=== PATIENT | male | born 1950 | race Caucasian/White ===

== ENCOUNTER → 2016-11-24 | Outpatient (CLI) | payer OTHER ==
[~2016-11-24] VITALS: Ht 177.8 cm; Wt 90.7 kg
[~2016-11-24] MED LIST: ALEVE220 MG PO; AMLODIPINE-BEN1 EAC5 PO; ASPIRIN325 PO; CENTRUM SILVER1 EAC2 PO; GLUCOSAMINE CH1 EA10 PO; IBUPROFEN200 M1 PO; INDAPAMIDE2.5 MG PO; LACTASE ENZ4500 UNIT PO; PROSCAR 5MG TABL5 MG PO
--- NOTE | ~2016-11-24 | S ---
[facility] [place] [address] [address] SURGICAL PATH RPT PROCEDURE Name: TODD LARSEN Room #: REG [facility].#: [id number] Admission: 11/24/16 Date of : 48 Discharge: Report #: [id number] Path Case #: [id number] PATHOLOGY REPORT COLLECTION DATE: 11/24/2016 RECEIVED DATE: 11/24/2016 SUBMITTING PHYS: Dr. Bobby Paula OTHER PHYS: SPECIMEN(S) RECEIVED: A.Ascending colon B.Transverse colon C.Descending colon D.Sigmoid E.Rectum * * * * * * * * * * * * FINAL DIAGNOSIS: A. Large intestine, ascending colon, endoscopic biopsy: - Mild chronic active colitis, history of ulcerative colitis. - Negative for dysplasia or malignancy. B. Large intestine, transverse colon, endoscopic biopsy: - Quiescent colitis, history of ulcerative colitis. - Negative for dysplasia or malignancy. C. Large intestine, descending colon, endoscopic biopsy: - Quiescent colitis, history of ulcerative colitis. - Negative for dysplasia or malignancy. D. Large intestine, sigmoid, endoscopic biopsy: - Moderate chronic active colitis, history of ulcerative colitis. - Negative for dysplasia or malignancy. E. Large intestine, rectum, endoscopic biopsy: - Moderate chronic active colitis, history of ulcerative colitis. - Negative for dysplasia or malignancy. COMMENT: Part D and E: Examination shows a markedly expanded lamina propria with basal plasmacytosis. The surface epithelium shows marked active inflammation. In addition there are crypt abscesses as well as areas of cryptitis present. There are no granulomata present. All of the fragments sampled in the "sigmoid colon" and "rectum" appear to show similar degree of involvement along with architectural abnormalities. Findings are consistent with the provided history of ulcerative colitis. There is no dysplasia or malignancy present. (IUV:csd; d/t: 11/25/2016) PATHOLOGIST: Marlene Prater M.D. REPORT ELECTRONICALLY SIGNED BY: Marlene Prater M.D. [address] [address] SURGICAL PATH RPT PROCEDURE Name: TODD LARSEN Room #: REG [facility]#: [id number] Admission: 11/24/16 Date of : 48 Discharge: Report #: [id number] Path Case #: [id number] DATE/TIME: 11/25/2016 16:15 * * * * * * * * * * * * GROSS PATHOLOGY: A. Received in formalin labeled "Todd Larsen, ascending colon," are 5 segments of loera soft tissue measuring 0.7 x 0.5 x 0.2 cm in aggregate dimensions and ranging from 0.2 to 0.5 cm in maximum dimension. The specimen is submitted entirely in cassette A1. B. Received in formalin labeled "Todd Larsen, transverse colon," are 4 segments of loera soft tissue measuring 0.5 x 0.5 x 0.3 cm in aggregate dimensions and ranging from 0.3 to 0.5 cm in maximum dimension. The specimen is submitted entirely in cassette B1. C. Received in formalin labeled "Todd Larsen, descending colon," are 4 segments of loera soft tissue measuring 0.7 x 0.5 x 0.2 cm in aggregate dimensions and ranging from 0.3 to 0.7 cm in maximum dimension. The specimen is submitted entirely in cassette C1. D. Received in formalin labeled "Todd Larsen sigmoid," are 3 segments of loera soft tissue measuring 0.6 x 0.5 x 0.2 cm in aggregate dimensions and ranging from 0.3 to 0.6 cm in maximum dimension. The specimen is submitted entirely in cassette D1. E. Received in formalin labeled "Todd Larsen, rectum," are 4 segments of loera soft tissue measuring 0.5 x 0.4 x 0.2 cm in aggregate dimensions and ranging from 0.2 to 0.4 cm in maximum dimension. The specimen is submitted entirely in cassette E1. (KAH; 11/24/2016) CLINICAL HISTORY: Pre-op diagnosis: History of ulcerative colitis Post-op diagnosis: Ulcerative colitis INITIAL CPT CODE(S): A; 38582 B; 41430 C; 21331 D; 99747 E; 01143 Professional services performed by [facility] at [address], [place] [address] Technical services performed by [facility] at [address] [place] [address], [address], [place] [address]. [facility] [address] [address] SURGICAL PATH RPT PROCEDURE Name: TODD LARSEN Room #: REG [facility].#: [id number] Admission: 11/24/16 Date of : 48 Discharge: Report #: [id number] Path Case #: [id number] [address] PHONE: [phone] DIRECTOR: Mike Brian M.D. * * * END OF REPORT * * *
--- NOTE | ~2016-11-24 | P ---
[facility] [place] [address] [place] [address] PROCEDURE REPORT Name: RIKA LARSEN Room #: REG [facility]#: [id number] Admission: 11/24/16 Attend Phys: Bobby Rivero Discharge: Date of : 48 Report #: [id number] THIS REPORT FOR: //name// CC: Bobby Ayon MD DATE OF SERVICE: 11/24/2016 PROCEDURE PERFORMED: Colonoscopy with biopsies. HISTORY OF PRESENT ILLNESS: The patient is a 66-year-old male with a history of ulcerative colitis who was recently evaluated in the office. The patient was diagnosed with ulcerative colitis years ago, was placed on mesalamine initially, apparently made his symptoms worse, there was a time when he was on Remicade, in which he was under better control. He also was on Imuran at one time, which was discontinued due to side effects. He has been having bloody diarrhea, abdominal pain. Plan is for colonoscopy. DESCRIPTION OF PROCEDURE: The risks and benefits of the procedure were explained to the patient, those risks including but not limited to bleeding, perforation and the risk of sedation. He understood these risks and gave informed consent. Sedation was given using propofol per anesthesia. Next, a digital rectal exam was initially performed, which was normal other than showing perianal skin excoriation. Next, using a standard Fujinon colonoscope, the scope was placed in the patient's anus and advanced under direct vision to the cecum. The overall prep was excellent. The cecum and ileocecal valve were normal in appearance. Terminal ileum was intubated and normal in appearance. The ascending colon was normal other than a few scattered diverticuli. No evidence of colitis. Because of his history of ulcerative colitis, I obtained random biopsies in the ascending, transverse, descending, sigmoid colon and rectum. The transverse colon and descending colon also were normal other than a few scattered diverticuli. In the sigmoid colon, multiple diverticuli were noted and a transition zone was noted at approximately 35 cm from the anus in which he became inflamed consistent with ulcerative colitis. As the scope was then slowly withdrawn, the inflammation became worse. The rectum showed moderate to severe ulcerative colitis with multiple ulcerations. Again biopsies were obtained in each of these areas. Close examination of the anal canal showed internal hemorrhoids, nonbleeding and then again perianal skin excoriation was noted. At this point, the scope was then withdrawn and the procedure terminated. The patient tolerated the procedure well. IMPRESSION: 1. Active colitis involving the sigmoid colon and rectum consistent with ulcerative colitis. 2. Pandiverticulosis. [address] [address] PROCEDURE REPORT Name: RIKA LARSEN Room #: REG [facility]#: [id number] Admission: 11/24/16 Attend Phys: Bobby Rivero Discharge: Date of : 48 Report #: [id number] 3. Internal hemorrhoids. 4. Perianal skin excoriation. RECOMMENDATIONS: 1. Await biopsy results. 2. We will discuss options with the patient including starting steroids, may consider enema versus a biologic such as Humira as the patient had previously already been on Imuran with side defects as well as Remicade in the past. Thank you for allowing me to participate in his care. <ELECTRONICALLY SIGNED> By: Bobby Paula MD 11/26/16 [id number] Bobby Paula MD /nt
== END ==
LOC: GI 06:56
DX: K51.90 Ulcerative colitis, unspecified, without complications (principal); K57.30 Diverticulosis of large intestine without perforation or abscess without bleeding; K64.8 Other hemorrhoids; F32.9 Major depressive disorder, single episode, unspecified; Z87.891 Personal history of nicotine dependence; I10 Essential (primary) hypertension; G47.33 Obstructive sleep apnea (adult) (pediatric)
CPT/HCPCS: 62110; 62900

== ENCOUNTER → 2018-02-03 | Outpatient (CLI) | payer OTHER ==
--- NOTE | ~2018-02-03 | EKG ---
[place] [address] [address] [facility] [place] [address] ELECTROCARDIOGRAM REPORT Name: RIKA LARSEN [facility] [id number] Admission: 02/03/18 Attend Phys: Wilian Crocker MD, F Discharge: Date of : 48 Report #: [id number] THIS REPORT FOR: //name// [facility] Test Date: 2018-02-03 Test Time: 09:02:58 Pat Name: RIKA LARSEN Department: Room: Gender: Food Analyst: : 1950 Requested By: Wilian Crocker Order Number: [id number] MD: Ronny Rico Measurements Intervals [place] Rate: 66 P: 57 CA: 183 QRS: 58 QRSD: 107 T: 57 QT: 428 QTc: 449 Interpretive Statements Sinus rhythm Borderline T abnormalities, anterior leads No previous ECG available for comparison Electronically Signed On 02-06-2018 9:06:16 CDT by Ronny Rico [email or web address] <ELECTRONICALLY SIGNED> By: Ronny Rico MD, [facility] 02/06/18 0906 09 0902 Ronny Rico MD, FAC /EPI
[2018-02-03 08:59] LABS: ABSOLUTE NEUTROPHILS 3.9 thou/uL (1.4-8.2); BASOPHILS 1.8 % (0.0-2.0); EOSINOPHILS 3.5 % (0.0-3.0); HEMATOCRIT 47.9 % (42.0-52.0); HEMOGLOBIN 17.1 gm/dL (14.0-18.0); LYMPHOCYTES 22.1 % (24.0-44.0); MCH 28.2 pg (26.0-34.0); MCHC 35.7 g/dL (28.0-37.0); MCV 78.9 fL (80.0-100.0); MONOCYTES 5.8 % (1.0-8.0); PLATELET COUNT 173 thou/uL (150-400); POLYS 66.8 % (36.0-66.0); RBC 6.07 mil/uL (4.50-6.00); RDW 13.7 % (10.5-14.5); WBC 5.8 thou/uL (4.0-11.0)
[2018-02-03 09:02] LABS: ALBUMIN 4.2 g/dL (3.4-5.0); CALCIUM 9.2 mg/dL (8.5-10.1); CREATININE 1.1 mg/dL (0.7-1.3); POTASSIUM 3.5 mmol/L (3.5-5.1); TOTAL BILIRUBIN 0.7 mg/dL (<0.1-1.0); TOTAL PROTEIN 7.6 g/dL (6.4-8.2)
[2018-02-03 11:28] LABS: ANISOCYTOSIS SLIGHT
== END ==
LOC: LABMALL 08:11
PROVIDERS: Surgery
DX: Z01.818 Encounter for other preprocedural examination (principal)

== ENCOUNTER 2018-02-15 05:24 | Day surgery (SDC) | payer OTHER ==
[~2018-02-15] VITALS: Ht 177.8 cm; Wt 91.6 kg
--- NOTE | ~2018-02-15 | O ---
[facility] [place] [address] [place] [address] OPERATIVE REPORT Name: RIKA LARSEN Room #: [facility]#: [id number] Admission: 02/15/18 Attend Phys: Wilian Crocker MD, F Discharge: 02/15/18 Date of : 48 Report #: [id number] THIS REPORT FOR: //name// CC: Musa Crocker DATE OF SERVICE: 02/15/2018 SURGEON: Wilian Crocker MD. SALES DEVELOPMENT EXECUTIVE: None. PREOPERATIVE DIAGNOSES: 1. Right inguinal hernia, possible recurrent left inguinal hernia. 2. History of inflammatory bowel disease/ulcerative colitis. 3. Hypertension. POSTOPERATIVE DIAGNOSES: 1. Right pantaloon inguinal hernia. 2. Right spigelian hernia. 3. Recurrent left pantaloon inguinal hernia. 4. Incarcerated incisional ventral hernia. 5. Incarcerated umbilical hernia. 6. History of inflammatory bowel disease. 7. Hypertension. PROCEDURES: 1. Laparoscopic totally extraperitoneal repair of right pantaloon inguinal and spigelian hernia with ProGrip mesh. 2. Laparoscopic total extraperitoneal repair of recurrent left pantaloon inguinal hernia with ProGrip mesh. 3. Laparoscopic primary repair of incarcerated incisional ventral hernia. 4. Open repair of incarcerated umbilical hernia. ANESTHESIA: General endotracheal anesthesia and local anesthetic. ESTIMATED BLOOD LOSS: 10 mL. SPECIMEN: None. COMPLICATIONS: None appreciated. INDICATION FOR PROCEDURE: This is a 67-year-old male patient of Dr. Musa Ayon and Dr. Gould who has had a right groin bulge over the past 5 years. More recently, the patient has developed pain with activity and abdominal straining. He denies a change in his bowel habits. The patient does have a history of an [facility] [address] [place] [address] OPERATIVE REPORT Name: RIKA LARSEN Room #: DEP [facility].#: [id number] Admission: 02/15/18 Attend Phys: Wilian Crocker MD, F Discharge: 02/15/18 Date of : 48 Report #: [id number] open left inguinal hernia repair many years ago. On exam, the patient had an obvious right inguinal bulge and left groin fullness. He presents today for laparoscopic repair of his right inguinal hernia, possible left inguinal hernia repair. OPERATIVE FINDINGS: Upon initial infraumbilical incision, an umbilical hernia defect was appreciated. This was incarcerated with preperitoneal fat with no bowel involvement. Within the preperitoneal space, a right inguinal hernia was evident, and upon further dissection, both a direct and indirect defects were present. A lateral abdominal wall defect was also present, felt to represent a spigelian hernia. This defect was small and was able to be covered with the ProGrip mesh. There was no evidence for a femoral hernia on the right. Within the left preperitoneal space, a tissue was seen entering a recurrent direct defect and an indirect defect was also present. These were felt to represent recurrent inguinal hernias. In addition to this, an incisional hernia was seen at the lateral aspect of the abdominal wall directly beneath the incision from his previous open inguinal hernia repair. This was felt to represent an incisional ventral hernia that was incarcerated with preperitoneal fat as well. This defect was approximately 3 cm long x 2 cm wide and amenable to primary closure with a patch repair. There is no evidence for a femoral hernia on the left side. At the conclusion of the operation, sponge, needle, and instrument counts were correct. DESCRIPTION OF PROCEDURE IN DETAIL: After the risks, benefits, and expectations of the operation were discussed in detail with the patient, informed consent was obtained. The patient was identified in the preoperative holding area. He was given IV antibiotics as documented in the chart in line with SCIP metrics. In addition to this, the patient has been taking a topical antifungal medication with significant decrease in the erythema present with no evidence for a bacterial infection of his scrotum and perineum. He was given IV antifungal medication prior to entering the operating room. The patient was taken to the operating room and placed in the supine position. SCDs were placed on the patient's bilateral lower extremities and pneumatic compression was initiated. The patient was then given IV sedation and he was intubated without incident. His abdomen, groins and genitalia were prepped and draped in the standard sterile fashion. A time-out was then performed to identify the correct patient and procedure. Local anesthetic was infiltrated into the skin and subcutaneous tissue infraumbilically where a curvilinear incision was made with #15 blade scalpel. Upon dissecting this, preperitoneal fat was protruding from an incarcerated umbilical defect. Inferior to this, the left anterior rectus sheath fascia was identified. The fascia was opened transversely and the left rectus abdominis muscle was swept laterally. The Spacemaker port was then placed within the preperitoneal space and advanced towards the pubic tubercle with gentle sweeping motions. The obturator was then removed and the Spacemaker balloon was inflated [facility] [address] [place] [address] OPERATIVE REPORT Name: RIKA LARSEN Room #: DEP [facility]#: [id number] Admission: 02/15/18 Attend Phys: Wilian Crocker MD, F Discharge: 02/15/18 Date of : 48 Report #: [id number] under direct visualization. The balloon was then deflated and removed and carbon dioxide was insufflated into the preperitoneal space. A 10-mm 30-degree angled laparoscope was inserted. The patient was placed in the Trendelenburg position. An additional 5-mm balloon ports were placed in the lower midline through appropriately sized incisions after local anesthetic was infiltrated into the skin and subcutaneous tissue. Exploration of the right preperitoneal space was undertaken first. The patient was rotated to his left with the right side up. The peritoneum was dissected off of the abdominal wall with blunt dissection with some use of electrocautery. The pubic tubercle was then identified. Dissection was carried out to identify the spermatic cord; however, a significant amount of fatty preperitoneal tissue was seen extending up into a direct defect. This was reduced to isolate the defect. The spermatic cord was then identified and its contents protected. The hernia sac extending up to the indirect defect was then dissected out of the defect and fully reduced. A cord lipoma was also present that did not warrant removal. Also, while dissecting along the abdominal wall, preperitoneal fat was extending up to a small spigelian defect that was less than 1 cm in size. All defects were amenable to coverage with the mesh. The ProGrip mesh was tailored on the backtable, then rolled and placed within the preperitoneal space through the Spacemaker port. The mesh was unrolled in a scroll down fashion with the adherent side against the abdominal wall and the green portion of the mesh placed medially. There was good coverage of all defects with good medialization of the mesh. Exploration of the left preperitoneal space was undertaken next. In a similar fashion, the landmarks were identified and preperitoneal tissue was seen extending up to a direct defect. This was initially felt to represent scar tissue; however, after further dissection, the tissue truly extended into a defect that was felt to be recurrent. The spermatic cord was then isolated and its content protected. The peritoneum extending up into the indirect defect was dissected free and a small cord lipoma was present in this area as well. Further dissection along the abdominal wall revealed preperitoneal fat extending into a larger lateral defect that was directly beneath the previous incision. This was amenable to closure with [id number] 0 PDS sutures through a separate stab wound. The peritoneum was dissected off of the abdominal wall further laterally as well to accommodate for mesh placement. The ProGrip mesh was then tailored on the backtable, rolled, and placed into the preperitoneal space through the Spacemaker port. The mesh was unrolled in a scroll down fashion with good coverage of the defects and good medialization of the mesh. After ensuring final hemostasis within the preperitoneal space, the 5-mm ports were removed under direct visualization after desufflating the preperitoneal space. Air had escaped into the peritoneal cavity and the pneumoperitoneum was released with a 5-mm port through the infraumbilical incision after removing the Spacemaker port. After desufflating the abdominal cavity, the umbilical hernia defect was repaired. The umbilical stalk was divided off of the fascia with [address] [address] OPERATIVE REPORT Name: RIKA LARSEN Room #: DEP [facility] Cong#: [id number] Admission: 02/15/18 Attend Phys: Wilian Crocker MD, F Discharge: 02/15/18 Date of : 48 Report #: [id number] electrocautery. The incarcerated content was reduced back within the preperitoneal space. A brcuvo-bm-[id number] 0 PDS suture was then used to close the defect. The suture was also used to tack the umbilical stalk to the fascia. Through this incision, I was also able to close the left rectus abdominis port site fascial opening. A ofviur-oy-[id number] 0 PDS sutures x 2 were placed to accomplish this. There was good closure of the transverse opening. A local anesthetic was infiltrated subfascially. All incisions were then closed with interrupted subcuticular 4-0 Monocryl sutures and Dermabond. Dermabond was applied to the stab wound in the left lower quadrant as well. The patient tolerated the procedure well. He was awakened, extubated, and taken to the recovery room in stable condition with no apparent intraoperative complications. By: 1110 1145 Wilian Crocker MD, FACS /nt
[~2018-02-15 05:24] MED LIST changes: +FISH OIL 1,001000 M2 PO; +URINOZINC PROS1 EACH PO; +ZYRTEC10 M5 PO
[2018-02-15] MEDS ORDERED: DIFLUCAN200 MG PO (11:21)
[2018-02-15] MEDS ORDERED: NEURONTIN 300300 M1 PO (11:21)
[2018-02-15] MEDS ORDERED: SENNA S TABLET1 EACH PO (11:21)
[2018-02-15] MEDS ORDERED: NORCO 5-325 TA1 EACH PO (11:21)
[2018-02-15 14:14] VITALS: BP 141/93
== END 2018-02-15 12:29 | disposition home or self-care (01) ==
LOC: OR 05:24 → TBA 05:25 → OR 10:02
DX: K40.90 Unilateral inguinal hernia, without obstruction or gangrene, not specified as recurrent (principal); K40.91 Unilateral inguinal hernia, without obstruction or gangrene, recurrent; K43.0 Incisional hernia with obstruction, without gangrene; K42.0 Umbilical hernia with obstruction, without gangrene; F32.9 Major depressive disorder, single episode, unspecified; Z87.891 Personal history of nicotine dependence; I10 Essential (primary) hypertension; Z98.890 Other specified postprocedural states
CPT/HCPCS: 50010; 50101; 50249; 50411; 50555; 50944; 51489; 51824; 52265; 52266; 54022; 54118; 54169; 55245; 56524; 56526; 62110; 62900; 70005

== ENCOUNTER 2018-03-26 23:51 | Inpatient (IN) | payer OTHER ==
[~2018-03-26] VITALS: Ht 177.8 cm; Wt 92.1 kg
[~2018-03-26 23:51] MED LIST changes: +DIFLUCAN200 MG PO; +NEURONTIN 300300 M1 PO; +NORCO 5-325 TA1 EACH PO; +SENNA S TABLET1 EACH PO
[2018-03-26 23:58] VITALS: BP 135/83
[2018-03-27 00:10] LABS: ABSOLUTE NEUTROPHILS 9.3 thou/uL (1.4-8.2); BASOPHILS 0.5 % (0.0-2.0); EOSINOPHILS 0.7 % (0.0-3.0); HEMATOCRIT 45.5 % (42.0-52.0); HEMOGLOBIN 15.5 gm/dL (14.0-18.0); LYMPHOCYTES 16.9 % (24.0-44.0); MCH 27.9 pg (26.0-34.0); MCV 81.9 fL (80.0-100.0); MONOCYTES 2.9 % (1.0-8.0); PLATELET COUNT 246 thou/uL (150-400); RBC 5.56 mil/uL (4.50-6.00); RDW 13.9 % (10.5-14.5); WBC 11.7 thou/uL (4.0-11.0)
[2018-03-27] MEDS ORDERED: URINOZINC PROS100 MG PO (00:12)
[2018-03-27 00:13] LABS: CALCIUM 9.2 mg/dL (8.5-10.1); CREATININE 1.6 mg/dL (0.7-1.3); POTASSIUM 3.3 mmol/L (3.5-5.1)
[2018-03-27 03:05] VITALS: BP 133/70
[2018-03-27 03:20] VITALS: BP 143/87
[2018-03-27 07:12] VITALS: BP 134/80
[2018-03-27 16:55] VITALS: BP 145/76
[2018-03-27 23:57] VITALS: BP 148/85
[2018-03-28 07:10] VITALS: BP 146/86
[2018-03-28 07:18] LABS: ABSOLUTE NEUTROPHILS 15.2 thou/uL (1.4-8.2); BASOPHILS 0.2 % (0.0-2.0); HEMATOCRIT 43.1 % (42.0-52.0); HEMOGLOBIN 14.2 gm/dL (14.0-18.0); LYMPHOCYTES 5.5 % (24.0-44.0); MCH 27.7 pg (26.0-34.0); MCHC 32.9 g/dL (28.0-37.0); MONOCYTES 1.9 % (1.0-8.0); PLATELET COUNT 274 thou/uL (150-400); POLYS 92.4 % (36.0-66.0); RBC 5.13 mil/uL (4.50-6.00); RDW 14.3 % (10.5-14.5); WBC 16.5 thou/uL (4.0-11.0)
[2018-03-28 07:21] LABS: CALCIUM 8.6 mg/dL (8.5-10.1); CREATININE 1.2 mg/dL (0.7-1.3); MAGNESIUM 2.1 mg/dL (1.8-2.4); POTASSIUM 3.8 mmol/L (3.5-5.1)
[2018-03-28] MEDS ORDERED: NORVASC10 MG PO ×2 (12:51→12:57)
[2018-03-28] MEDS ORDERED: LOPRESSOR25 PO ×2 (12:54→12:57)
[2018-03-28] MEDS ORDERED: PREDNISONE 10 M10 MG PO (12:59)
[2018-03-28 14:19] VITALS: BP 146/86
== END 2018-03-28 14:45 | disposition home or self-care (01) | DRG 915 ==
LOC: ER 23:51 → EROBS 03-27 01:48 → 4E 03-27 01:48 → SICU 03-27 17:31 → ENTRNSPT 03-28 14:31 → EDTRNSPTSTS 03-28 14:35 → SICU 03-28 14:45
PROVIDERS: Emergency Medicine; Nurse Practitioner
DX: T78.3XXA Angioneurotic edema, initial encounter (principal); N17.0 Acute kidney failure with tubular necrosis; K51.90 Ulcerative colitis, unspecified, without complications; I10 Essential (primary) hypertension; F41.9 Anxiety disorder, unspecified; N40.0 Benign prostatic hyperplasia without lower urinary tract symptoms; G62.9 Polyneuropathy, unspecified; D72.829 Elevated white blood cell count, unspecified; R25.1 Tremor, unspecified; E87.6 Hypokalemia; Z88.8 Allergy status to other drugs, medicaments and biological substances; Z79.899 Other long term (current) drug therapy; Z87.891 Personal history of nicotine dependence; Y84.8 Other medical procedures as the cause of abnormal reaction of the patient, or of later complication, without mention of misadventure at the time of the procedure; Y92.89 Other specified places as the place of occurrence of the external cause
CPT/HCPCS: 15002